=== PATIENT | male | born 1965 | race Two or more races ===

== ENCOUNTER 2019-05-21 08:43 | Outpatient (CLI) | payer OTHER | END 2019-05-21 08:55 | disposition home or self-care (01) | LOC: NUCLEAR 08:43 | DX: C61 Malignant neoplasm of prostate (principal) | CPT/HCPCS: 78306; A9503 ==

== ENCOUNTER → 2019-05-28 | Outpatient (CLI) | payer OTHER | END | disposition home or self-care (01) | LOC: NUCLEAR 07:00 | DX: C61 Malignant neoplasm of prostate (principal); C64.1 Malignant neoplasm of right kidney, except renal pelvis | CPT/HCPCS: 78816; A9552 ==